=== PATIENT | female | born 1965 | race Caucasian/White ===

== ENCOUNTER 2019-09-05 20:48 | Inpatient (IN) | payer MEDICARE ==
[2019-09-05 21:46] LABS: #Basophils 0.1 thou/uL (0.0-0.2); #Eosinphils 0.1 thou/uL (0.0-0.7); #Lymphocytes 4.3 thou/uL (1.20-3.40); #Monocytes 0.7 thou/uL (0.11-0.59); #Neutrophils 11.1 thou/uL (1.40-6.50); %Basophils 0.7 % (0.0-1.0); %Eosinophils 0.8 % (0.0-10.0); %Lymphocytes 26.2 % (21.0-51.0); %Monocytes 4.3 % (0.0-10.0); Hemoglobin 17.4 g/dL (12.0-16.0); Mean Corpuscular HGB CONC 32.7 g/dL (32.0-36.0); Mean Corpuscular Hemoglobin 30.3 pg (27.0-31.0); Mean Corpuscular Volume 92.6 fL (78.0-98.0); Mean Platelet Volume 7.1 fL (7.4-10.4); Platelet Count 387 thou/uL (130-400); RBC Distribution Width 12.1 % (11.5-14.5); Red Blood Cell (RBC) Count 5.74 mill/uL (4.20-5.40); White Blood Cell (WBC) Count 16.3 thou/uL (4.8-10.8)
--- NOTE | 2019-09-05 21:49 | RAD ---
EXAM: Single view of the chest HISTORY: Cough COMPARISON: None FINDINGS: Single view of the chest shows a normal sized cardiomediastinal silhouette. There is no renetta dence of consolidation, mass, or pleural effusion. The bones are unremarkable. IMPRESSION: No evidence of acute cardiopulmonary disease
[2019-09-05 22:06] LABS: ALT (SGPT) 23 U/L (8-55); AST (SGOT) 13 U/L (5-34); Albumin 4.5 g/dL (3.5-5.0); Alkaline Phosphatase 129 U/L (40-110); Anion Gap 15 mmol/L (10-20); BUN (Urea Nitrogen) 8 mg/dL (9.8-20.1); Bilirubin, Total 0.5 mg/dL (0.2-1.2); Calc. Creatinine Clearance 0 mL/min (70-130); Calcium 9.8 mg/dL (7.8-10.44); Carbon Dioxide 24 mmol/L (22-29); Chloride 101 mmol/L (98-107); Estimated GFR-MDRD 81; Globulin 4.1 g/dL (2.4-3.5); Glucose 88 mg/dL (70-105); Protein, Total 8.6 g/dL (6.0-8.3); Sodium 136 mmol/L (136-145)
[2019-09-05] MEDS ORDERED: methylPREDNISolone Sod Succ/PF 125 MG/2 ML VIAL ONE (22:07)
[2019-09-06] LABS: Bilirubin Negative (Negative); Blood, Urine Negative (Negative); Clarity Clear (Clear); Glucose, Urine (Dipstick) Normal (Negative); Leukocyte Negative Leu/uL (Negative); Nitrite Negative (Negative); Protein, Urine (Dipstick) Negative (Neg-Trace); Urobilinogen Normal mg/dL (Less than 2)
[2019-09-06] MEDS ORDERED: cefTRIAXone\\ROCEPHIN 1 GM VIAL ONE (00:14)
[2019-09-06] MEDS ORDERED: Benzonatate 100 MG CAP PO PRN (00:55)
[2019-09-06] MEDS ORDERED: Bacteriostatic Water 30 ML VIAL FS PRN (01:00)
[2019-09-06 01:42] LABS: Lactic Acid 3.6 mmol/L (0.5-2.2)
[2019-09-06 02:09] VITALS: BMI 29.5
--- NOTE | 2019-09-06 02:19 | HP ---
CHIEF COMPLAINT: Shortness of breath. HISTORY OF PRESENT ILLNESS: The patient is a 54-year-old female, who was recently diagnosed with possible pneumonia at her PCP's office. The patient stated that about a few days ago, she went to her primary care with complaints of congestion, fevers, cough, and at this time, her primary care doctor put her on some Z-Pritesh and gave her a steroid shot and sent her home. The patient stated that initially she has felt a little bit better; however, then she started feeling unwell and so she came into the ER for further evaluation. The patient states that today she felt like she was unable to breathe. In the ED, she was found to be very short of breath, was not really hypoxic; however, she was found to be in significant respiratory distress. PAST MEDICAL HISTORY: She has a history of myasthenia gravis and dystonia. She has also had a history of acoustic neuroma, status post surgery. History of blood clots in her legs, which were attributed to her varicose veins and restless legs syndrome. FAMILY HISTORY: She has a history of clots and asthma. SOCIAL HISTORY: She denies any smoking herself, alcohol use, or drug use; however, her family would smoke extensively that she had significant amount of secondhand smoking. ALLERGIES: SHE HAS MULTIPLE ALLERGIES, ESPECIALLY TO PENICILLIN; HOWEVER, SHE IS ABLE TO TOLERATE CEFTRIAXONE. MEDICATIONS: She does not have her medications with her. I did discuss code status. She is a full code. REVIEW OF SYSTEMS: All negative except for the ones mentioned above in the HPI. PHYSICAL EXAMINATION: VITAL SIGNS: Are as of the following; temperature of 99.1, respirations 24, O2 saturation 97% on room air, heart rate 89, blood pressure 124/64. GENERAL: She is awake, alert, and oriented x3. Does not appear in distress. HEENT: Normocephalic, atraumatic. No lymphadenopathy noted. Pupils are equal and reactive to light. CV: S1 and S2 present. No murmurs, rubs, or gallops. LUNGS: She does have significant rhonchi and mild expiratory wheezing to her upper chest area anteriorly; posteriorly, she appears to be pretty clear. ABDOMEN: Soft and nontender. Bowel sounds are present x2. EXTREMITIES: No edema. Pedal pulses are present x2. NEUROVASCULAR: There was no focal deficits noted. SKIN: No cuts, lesions, or bruises noted. DIAGNOSTIC STUDIES: She did have x-ray, which did not show any acute infectious etiology. LABORATORY DATA: WBC of 16.3, hemoglobin 17.4, hematocrit of 53.2, platelets of 387. Chemistry; sodium of 136, potassium of 4.0, BUN of 8, creatinine of 0.75. Lactic acid was 3.6. ASSESSMENT AND PLAN: The patient is a pleasant 54-year-old female, who presents to the hospital with worsening shortness of breath. 1. Shortness of breath. This could be secondary to possible maybe bronchitis versus worsening pneumonia versus cardiac etiology. I will start the patient on some DuoNebs and also her flu swab is pending. We will also start her on some ceftriaxone. She already received a dose of Z-Pritesh. I will not continue that. I will also give her some steroids and I will continue to monitor her. I will also get a CT chest just to rule out any other etiologies. 2. Lactic acidosis. Again, I will start her on some mild hydration and continue to monitor. 3. Myoasthenia gravis. The patient states that she does not take her medications on a daily basis. She only takes this as needed whenever her symptoms flare up. 4. Deep venous thrombosis prophylaxis. We will put the patient on SCDs and also we will start her on some Lovenox. Job ID: [id number]
[2019-09-06] MEDS: Sodium Chloride 0.9% 1,000 ML IV SCH ×2 (02:29→21:07)
[2019-09-06 06:04] LABS: #Lymphocytes 1.1 thou/uL (1.20-3.40); #Monocytes 0.1 thou/uL (0.11-0.59); #Neutrophils 10.8 thou/uL (1.40-6.50); %Eosinophils 0.1 % (0.0-10.0); %Lymphocytes 9.1 % (21.0-51.0); %Monocytes 0.6 % (0.0-10.0); %Neutrophils 90.2 % (42.0-75.0); Hemoglobin 15.2 g/dL (12.0-16.0); Mean Corpuscular HGB CONC 33.4 g/dL (32.0-36.0); Mean Corpuscular Hemoglobin 30.7 pg (27.0-31.0); Mean Corpuscular Volume 91.9 fL (78.0-98.0); Platelet Count 298 thou/uL (130-400); Red Blood Cell (RBC) Count 4.93 mill/uL (4.20-5.40)
[2019-09-06 06:18] LABS: Lactic Acid 3.4 mmol/L (0.5-2.2)
[2019-09-06 06:21] LABS: Anion Gap 13 mmol/L (10-20); BUN (Urea Nitrogen) 9 mg/dL (9.8-20.1); Calc. Creatinine Clearance 138 mL/min (70-130); Calcium 8.6 mg/dL (7.8-10.44); Carbon Dioxide 20 mmol/L (22-29); Chloride 106 mmol/L (98-107); Estimated GFR-MDRD Greater than 90; Glucose 160 mg/dL (70-105); Potassium 4.1 mmol/L (3.5-5.1); Sodium 135 mmol/L (136-145)
[2019-09-06] MEDS ORDERED: methylPREDNISolone Sod Succ 40 MG VIAL IVP SCH (09:00)
[2019-09-06] MEDS: Famotidine 20 MG TAB PO SCH ×2 (09:20→20:25)
--- NOTE | 2019-09-06 10:06 | CT ---
PRELIMINARY REPORT/[facility]/EMERGENCY AFTER HOURS PROCEDURE: PROCEDURE INFORMATION: Exam: CT Chest Without Contrast Exam date and time: 09/06/2019 1:36 AM Clinical history: 54 years old, female; Dyspnea and shortness of breath; Patient HX: Er 26. F54 repor ts to ED C/O SOB. PT reports recent diagnosis of pneumonia with z-pac. TECHNIQUE: Imaging protocol: Computed tomography of the chest without contrast. COMPARISON: No relevant prior studies available. FINDINGS: Lungs: Unremarkable. No consolidation. No masses. Pleural space: Unremarkable. No pneumothorax. No pleural effusion. Heart: Unremarkable. No cardiomegaly. No pericardial effusion. Mediastinum: Esophagus is unremarkable. Aorta: Unremarkable. No aortic aneurysm. Lymph nodes: Unremarkable. No enlarged lymph nodes. Gallbladder and bile ducts: Include visualized gallstone. Bones/joints: Unremarkable. No acute fracture. Soft tissues: Unremarkable. IMPRESSION: No acute findings. Thank you for allowing us to participate in the care of your patient. Dictated and Authenticated by: Ronni Wasserman MD 09/06/2019 1:53 AM Central Time ([place] & [place]) FINAL REPORT CT CHEST WITHOUT CONTRAST: The lung gomez are clear. Images of the upper abdomen revealed a single peripherally calcified gallstone. I am in agreement with the preliminary report.
[2019-09-06] MEDS ORDERED: HYDROcodone/Acetaminophen 5/325 mg Tablet PO PRN (11:52)
--- NOTE | 2019-09-06 13:35 | PDOC.HOSPP ---
- Subjective Encounter Date: 09/06/19 Encounter Time: 12:00 Subjective: sob better, still has coughing spells which are mostly dry has left knee pain, she is worried about dvt? she ambulates well with out any assistive devices at home - Objective Vital Signs & Weight: Vital Signs (12 hours) Temp Pulse Resp BP BP BP Pulse Ox 09/06/19 11:16 98 F 91 19 118/63 95 09/06/19 09:33 99 09/06/19 06:35 92 24 H 99 09/06/19 04:00 98.2 F 96 20 151/88 H 93 L 09/06/19 02:54 96 09/06/19 02:08 97.5 F L 96 22 H 153/78 H 96 Weight Weight 183 lb 3.2 oz Result Diagrams: 09/06/19 05:38 09/06/19 05:38 Hospitalist ROS - Medication Medications: Active Medications Generic Name Dose Route Start Last Admin Trade Name Freq PRN Reason Stop Dose Admin Albuterol/Ipratropium 3 ml 09/06/19 01:00 09/06/19 06:35 Duoneb NEB 3 ml [id number] CAROL Administration Famotidine 20 mg 09/06/19 09:00 09/06/19 09:20 Pepcid PO 20 mg BID CAROL Administration Sodium Chloride 1,000 mls @ 50 mls/hr 09/06/19 01:00 09/06/19 02:29 Normal Saline 0.9% IV 1,000 mls .Q20H CAROL Administration Methylprednisolone Sodium Succinate 40 mg 09/06/19 09:00 09/06/19 09:20 Solu-Medrol IVP 40 mg DAILY CAROL Administration - Exam General Appearance: NAD, awake alert Eye: PERRL, anicteric sclera ENT: no oropharyngeal lesions, moist mucosa Neck: no JVD Heart: RRR, no murmur Respiratory: no wheezes, no rales, rhonchi Gastrointestinal: soft, non-tender, non-distended, normal bowel sounds Extremities: no cyanosis, no edema Neurological: cranial nerve grossly intact, no focal deficits Psychiatric: normal affect, A&O x 3 Hosp A/P (1) Viral illness Status: Acute (2) Asthma exacerbation Code(s): J45.901 - UNSPECIFIED ASTHMA WITH (ACUTE) EXACERBATION Status: Acute Qualifiers: Asthma severity: moderate Asthma persistence: persistent Qualified Code(s ): J45.41 - Moderate persistent asthma with (acute) exacerbation (3) Myasthenia gravis Code(s): G70.00 - MYASTHENIA GRAVIS WITHOUT (ACUTE) EXACERBATION Status: Chronic (4) Seizure disorder Code(s): G40.909 - EPILEPSY, UNSP, NOT INTRACTABLE, WITHOUT STATUS EPILEPTICUS Status: Chronic (5) Restless leg syndrome Status: Chronic (6) Hypothyroidism Code(s): E03.9 - HYPOTHYROIDISM, UNSPECIFIED Status: Chronic Qualifiers: Hypothyroidism type: unspecified Qualified Code(s): E03.9 - Hypothyroidism , unspecified - Plan f/u with for myasthenia (gets gen weakness if has a flare up), continue mestinon on ceftriaxone, steroids, nebs (is on advair and alb nebs at home) continue synthroid, oxcarbamazepine, mirapex and escitalopram pulm consultation [facility]
[2019-09-06] MEDS: Pyridostigmine Bromide IR 60 MG TAB PO SCH ×2 (14:29→20:26)
[2019-09-06] MEDS: ALPRAZolam 0.5 MG TAB PO SCH ×2 (14:47→20:25)
[2019-09-06] MEDS: methylPREDNISolone Sod Succ 40 MG VIAL IVP SCH ×2 (18:05→23:59)
[2019-09-06] MEDS: Mometasone/Formoterol 120 PUFF INHALER INH SCH (18:25)
[2019-09-06] MEDS: Benzonatate 100 MG CAP PO SCH (20:25)
[2019-09-06] MEDS: guaiFENesin ER 600 MG TAB PO SCH (20:25)
[2019-09-06] MEDS: OXcarbazepine 300 MG TAB PO SCH (20:25)
[2019-09-06] MEDS: tiZANidine HCl 4 MG TAB PO PRN (20:30)
[2019-09-06] MEDS: Pramipexole Di-HCl 0.25 MG TAB PO SCH (21:06)
[2019-09-07] MEDS ORDERED: cefTRIAXone\\ROCEPHIN 1 GM in Sodium Chloride 0.9% 100 ML IVPB SCH (01:00)
[2019-09-07] MEDS: methylPREDNISolone Sod Succ 40 MG VIAL IVP SCH ×2 (05:30→20:27)
[2019-09-07 05:55] LABS: Anion Gap 12 mmol/L (10-20); BUN (Urea Nitrogen) 11 mg/dL (9.8-20.1); Calc. Creatinine Clearance 141 mL/min (70-130); Calcium 8.5 mg/dL (7.8-10.44); Carbon Dioxide 20 mmol/L (22-29); Chloride 108 mmol/L (98-107); Estimated GFR-MDRD Greater than 90; Glucose 143 mg/dL (70-105); Potassium 4.4 mmol/L (3.5-5.1); Sodium 136 mmol/L (136-145)
[2019-09-07 05:59] LABS: Band 5 % (5-11); Hemoglobin 14.3 g/dL (12.0-16.0); Lymphocytes 3 % (21-51); MDiff Complete? YES; Mean Corpuscular HGB CONC 33.6 g/dL (32.0-36.0); Mean Corpuscular Hemoglobin 31.1 pg (27.0-31.0); Mean Corpuscular Volume 92.5 fL (78.0-98.0); Mean Platelet Volume 7.1 fL (7.4-10.4); Monocytes 2 % (0-10); Neutrophil 90 % (42-75); Platelet Count 301 thou/uL (130-400); Platelet Morphology Comment Appears Adequate; RBC Distribution Width 12.2 % (11.5-14.5); RBC Morphology Normal; Red Blood Cell (RBC) Count 4.59 mill/uL (4.20-5.40); White Blood Cell (WBC) Count 19.1 thou/uL (4.8-10.8)
[2019-09-07] MEDS: Mometasone/Formoterol 120 PUFF INHALER INH SCH ×2 (06:41→18:15)
[2019-09-07] MEDS ORDERED: Pramipexole Di-HCl 0.25 MG TAB PO SCH (09:00)
[2019-09-07] MEDS: Benzonatate 100 MG CAP PO SCH ×3 (09:16→20:27)
[2019-09-07] MEDS: Levothyroxine Sodium 112 MCG TAB PO SCH (09:16)
[2019-09-07] MEDS: Pyridostigmine Bromide IR 60 MG TAB PO SCH ×3 (09:16→20:26)
[2019-09-07] MEDS: Escitalopram Oxalate 20 mg Tablet PO SCH (09:16)
[2019-09-07] MEDS: guaiFENesin ER 600 MG TAB PO SCH ×2 (09:16→20:26)
[2019-09-07] MEDS: OXcarbazepine 300 MG TAB PO SCH ×2 (09:17→20:27)
[2019-09-07] MEDS: Acetaminophen 325 MG TAB PO PRN (09:20)
[2019-09-07] MEDS: Famotidine 20 MG TAB PO SCH ×2 (09:24→20:26)
[2019-09-07] MEDS: ALPRAZolam 0.5 MG TAB PO SCH ×3 (09:25→20:40)
--- NOTE | 2019-09-07 09:46 | CON ---
DATE OF CONSULTATION: HISTORY OF PRESENT ILLNESS: A 54-year-old obese female, 79 kg, presented to the ER with shortness of breath, coughing, and wheezing of several days' duration. Apparently, a diagnosis of pneumonia was made recently. She tells me given a course of Z-Pritesh by her doctor. The x-ray and chest CT were negative. Nonsmoker. No prior history of TB, but has a history of asthmatic condition, twice a year cold. Her cough is relatively clear. PAST MEDICAL HISTORY: Pertinent for brain tumor. She is deaf. History of myasthenia gravis, history of epilepsy. PAST SURGICAL HISTORY: Craniotomy, hysterectomy. ALLERGIES: CODEINE, IODINE, LEVAQUIN, PENICILLIN, SULFA. SOCIAL HISTORY: She is disabled. REVIEW OF SYSTEMS: Otherwise, 10-point negative. PHYSICAL EXAMINATION: VITAL SIGNS: Sats are 98% on room air, respiratory rate 18, temperature 98, blood pressure 133/75. CHEST: Diffuse wheezing. CARDIAC: Normal S1 and S2. No gallops. ABDOMEN: No masses. IMPRESSION: 1. Asthmatic bronchitis, probably viral syndrome. I see no pneumonia. 2. Myasthenia gravis. 3. Seizure disorders. 4. Craniotomy. 5. Hypothyroidism. 6. Depression. PLAN: Initiate steroids, neb treatments, supportive care. Switch over to oral antibiotics tomorrow. Consultation note, 70 minutes, 50% direct patient care. Job ID: [id number]
--- NOTE | 2019-09-07 11:28 | PRG ---
DATE OF SERVICE: 09/07/2019 SUBJECTIVE: This morning, she is much better. Less shortness of breath and less cough. OBJECTIVE: VITAL SIGNS: Temperature 98, pulse 102, saturations 98% on room air, blood pressure 108/62. CHEST: No wheezing. CARDIAC: Normal S1, S2. No gallops. ABDOMEN: No masses. LABORATORY DATA: White count [id number]. ASSESSMENT: Asthmatic bronchitis exacerbation. Switch to p.o. medicine. IV steroids, p.o. prednisone tomorrow. Supportive care and PT. Eventually home in the next 24 to 48 hours. Job ID: [id number]
--- NOTE | 2019-09-07 11:35 | PDOC.HOSPP ---
- Subjective Encounter Date: 09/07/19 Encounter Time: 11:32 Subjective: Patient seen and examined for Sepsis/Pneumonia. Dry cough. Wheezing improving. Feeling better. No new complaints. No overnight events - Objective Vital Signs & Weight: Vital Signs (12 hours) Temp Pulse Resp BP Pulse Ox 09/07/19 09:25 98 09/07/19 08:17 98.0 F 102 H 18 108/62 98 09/07/19 06:42 100 14 09/07/19 00:16 84 18 94 L Weight Weight 183 lb 3.2 oz Result Diagrams: 09/07/19 04:44 09/07/19 04:44 Radiology Reviewed by me: Yes (CXR - reviewed) Hospitalist ROS - Review of Systems Respiratory: reports: SOB with excertion, wheezing. denies: cough, dry, shortness of breath, hemoptysis, pleuritic pain, sputum, other Cardiovascular: denies: chest pain, palpitations, orthopnea, paroxysmal noc. dyspnea, edema, light headedness, other Gastrointestinal: denies: nausea, vomiting, abdominal pain, diarrhea, constipation, melena, hematochezia, other - Medication Medications: Active Medications Generic Name Dose Route Start Last Admin Trade Name Freq PRN Reason Stop Dose Admin Acetaminophen 650 mg 09/06/19 00:54 09/07/19 09:20 Tylenol PO 650 mg Q4H PRN Administration Headache/Fever/Mild Pain (1-3) Albuterol/Ipratropium 3 ml 09/06/19 01:00 09/07/19 06:42 Duoneb NEB 3 ml [id number] CAROL Administration Alprazolam 0.5 mg 09/06/19 15:00 09/07/19 09:25 Xanax PO Not Given TID CAROL Benzonatate 100 mg 09/06/19 00:55 09/06/19 14:29 Tessalon PO 100 mg TIDPRN PRN Administration Cough Benzonatate 100 mg 09/06/19 21:00 09/07/19 09:16 Tessalon PO 100 mg TID CAORL Administration Escitalopram Oxalate 20 mg 09/07/19 09:00 09/07/19 09:16 Lexapro PO 20 mg DAILY CAROL Administration Famotidine 20 mg 09/06/19 09:00 09/07/19 09:24 Pepcid PO 20 mg BID CAROL Administration Guaifenesin 1,200 mg 09/06/19 21:00 09/07/19 09:16 Mucinex PO 1,200 mg Q12HR CAROL Administration Sodium Chloride 1,000 mls @ 50 mls/hr 09/06/19 01:00 09/06/19 21:07 Normal Saline 0.9% IV 1,000 mls .Q20H CAROL Administration Levothyroxine Sodium 112 mcg 09/07/19 09:00 09/07/19 09:16 Synthroid PO 112 mcg DAILY CAROL Administration Mometasone Furoate/Formoterol Fumar 2 puff 09/06/19 18:30 09/07/19 06:41 Dulera 200 Mcg/5 Mcg Inhaler INH 2 puff BID-RT CAROL Administration Oxcarbazepine 300 mg 09/06/19 21:00 09/07/19 09:17 Trileptal PO 300 mg BID CAROL Administration Pramipexole Dihydrochloride 0.5 mg 09/06/19 21:00 09/06/19 21:06 Mirapex PO 0.5 mg HS CAROL Administration Pyridostigmine [place] 60 mg 09/06/19 15:00 09/07/19 09:16 Mestinon PO 60 mg TID CAROL Administration Sodium Chloride 10 ml 09/06/19 20:30 09/07/19 09:17 Flush - Normal Saline IVF 10 ml PRN PRN Administration Saline Flush Tizanidine HCl 4 mg 09/06/19 11:52 09/06/19 20:30 Zanaflex PO 4 mg DAILYPRN PRN Administration Muscle Spasm - Exam General Appearance: NAD Neck: supple, no JVD Heart: RRR, no gallops Respiratory: no wheezes, normal chest expansion, rhonchi Gastrointestinal: soft, non-tender, non-distended, normal bowel sounds Extremities: no edema Hosp A/P - Plan DVT proph w/lovenox, DVT proph w/SCDs Severe Sepsis due to Pneumonia ?gram negative with Asthmatic bronchitis Lactic acidosis Seizure disorder Cholelithiasis RLD Myasthenia gravis Hypothyroidism Hyponatremia PLAN: Cont IV Steroids Cont PO Doxycycline AM labs AMbulate Cont other meds
[2019-09-07] MEDS: Calcium Carbonate + Vit D 1 TAB PO SCH (17:17)
[2019-09-07] MEDS: Pramipexole Di-HCl 0.25 MG TAB PO SCH (20:26)
[2019-09-07] MEDS: Doxycycline 100 MG CAP PO SCH (20:27)
[2019-09-07] MEDS: tiZANidine HCl 4 MG TAB PO PRN (20:32)
[2019-09-07] MEDS ORDERED: Enoxaparin Sodium 40 MG/0.4 ML SYRINGE SC SCH (21:00)
[2019-09-08] MEDS: Acetaminophen 325 MG TAB PO PRN ×2 (03:36→07:29)
[2019-09-08 05:32] LABS: #Lymphocytes 1.6 thou/uL (1.20-3.40); #Monocytes 0.4 thou/uL (0.11-0.59); #Neutrophils 11.2 thou/uL (1.40-6.50); %Basophils 0.2 % (0.0-1.0); %Eosinophils 0.4 % (0.0-10.0); %Lymphocytes 11.9 % (21.0-51.0); %Monocytes 2.9 % (0.0-10.0); %Neutrophils 84.6 % (42.0-75.0); Hemoglobin 13.5 g/dL (12.0-16.0); Mean Corpuscular HGB CONC 33.7 g/dL (32.0-36.0); Mean Corpuscular Hemoglobin 31.1 pg (27.0-31.0); Mean Corpuscular Volume 92.5 fL (78.0-98.0); Mean Platelet Volume 7.1 fL (7.4-10.4); Platelet Count 280 thou/uL (130-400); RBC Distribution Width 12.2 % (11.5-14.5); Red Blood Cell (RBC) Count 4.33 mill/uL (4.20-5.40); White Blood Cell (WBC) Count 13.2 thou/uL (4.8-10.8)
[2019-09-08 05:44] LABS: Lactic Acid 3.9 mmol/L (0.5-2.2)
[2019-09-08 05:56] LABS: ALT (SGPT) 48 U/L (8-55); AST (SGOT) 21 U/L (5-34); Albumin 3.5 g/dL (3.5-5.0); Alkaline Phosphatase 94 U/L (40-110); Anion Gap 13 mmol/L (10-20); BUN (Urea Nitrogen) 14 mg/dL (9.8-20.1); Bilirubin, Total 0.2 mg/dL (0.2-1.2); Calc. Creatinine Clearance 117 mL/min (70-130); Calcium 8.3 mg/dL (7.8-10.44); Carbon Dioxide 21 mmol/L (22-29); Chloride 106 mmol/L (98-107); Estimated GFR-MDRD 84; Globulin 2.8 g/dL (2.4-3.5); Glucose 180 mg/dL (70-105); Magnesium 1.9 mg/dL (1.6-2.6); Potassium 4.3 mmol/L (3.5-5.1); Protein, Total 6.3 g/dL (6.0-8.3); Sodium 136 mmol/L (136-145)
[2019-09-08] MEDS: Pyridostigmine Bromide IR 60 MG TAB PO SCH (07:29)
[2019-09-08] MEDS: Benzonatate 100 MG CAP PO SCH (07:29)
[2019-09-08] MEDS: Doxycycline 100 MG CAP PO SCH (07:29)
[2019-09-08] MEDS: Escitalopram Oxalate 20 mg Tablet PO SCH (07:30)
[2019-09-08] MEDS: Levothyroxine Sodium 112 MCG TAB PO SCH (07:30)
[2019-09-08] MEDS: ALPRAZolam 0.5 MG TAB PO SCH (07:30)
[2019-09-08] MEDS: Calcium Carbonate + Vit D 1 TAB PO SCH (07:30)
[2019-09-08] MEDS: Famotidine 20 MG TAB PO SCH (07:30)
[2019-09-08] MEDS: OXcarbazepine 300 MG TAB PO SCH (07:30)
[2019-09-08] MEDS: guaiFENesin ER 600 MG TAB PO SCH (07:30)
[2019-09-08] MEDS: methylPREDNISolone Sod Succ 40 MG VIAL IVP SCH (07:31)
[2019-09-08] MEDS: Mometasone/Formoterol 120 PUFF INHALER INH SCH (07:35)
[2019-09-08] MEDS ORDERED: Multivit, Therapeutic 1 TAB PO SCH (09:00)
--- NOTE | 2019-09-08 09:27 | PRG ---
DATE OF SERVICE: 09/08/2019 SUBJECTIVE: This morning, she feels much better, less cough, less shortness of breath, minimal wheezing. OBJECTIVE: VITAL SIGNS: Saturations are 98% on room air, temperature 98, pulse 78, and blood pressure 138/77. CHEST: No wheezing. No crackles. CARDIAC: Normal S1 and S2. No gallops. ABDOMEN: No masses. LABORATORY DATA: Unremarkable. Glucose is slightly elevated, probably from steroids. ASSESSMENT: Asthmatic bronchitis, much improved, no evidence of pneumonia. PLAN: She can be discharged home. Follow up with the primary care physician. Taper prednisone over 2 weeks. Job ID: [id number]
--- NOTE | 2019-09-08 10:22 | DIS ---
DATE OF ADMISSION: 09/06/2019 DATE OF DISCHARGE: 09/08/2019 DISCHARGE DISPOSITION: Home. FOLLOWUP: 1. Follow up with primary care physician, Dr. Jagdeep Gramajo in 1 week. 2. Follow up with Dr. Pratt as needed. DISCHARGE MEDICATIONS: 1. Doxycycline 100 mg twice daily for the next 5 days. 2. Advair Diskus 250/50 one inhalation b.i.d. 3. Multivitamin one tablet daily. 4. Prednisone taper. 5. All other home medications were left unchanged. The patient was seen and examined on the day of discharge. Denies any new complaints. No chest pain, shortness of breath, or palpitations reported. BRIEF HOSPITAL COURSE: The patient is a 54-year-old female with asthma, presented to the hospital with shortness of breath. A workup was consistent with sepsis secondary to pneumonia along with asthmatic bronchitis. She showed good improvement with antibiotics along with steroids. WBC maximum was 19.1, that improved to 13.2 at discharge. Symptoms have significantly improved. She has been cleared by Pulmonary, Dr. Pratt for discharge. Blood culture remained negative. Influenza testing was negative. The patient was found to have lactic acid of 3.6 on admission. Repeat lactic acid has remained in this range. Today on the day of discharge, the lactic acid is 3.9. Lactic acid is probably secondary to enhanced metabolic rate from asthma exacerbation. A repeat lactic acid along with basic metabolic profile later this week is recommended. Primary care physician advised to follow. She is currently on room air and appears stable for discharge. FINAL DIAGNOSES: 1. Severe sepsis secondary to pneumonia, questionable gram-negative with asthmatic bronchitis. 2. Lactic acidosis secondary to sepsis with asthma exacerbation. 3. Seizure disorder. 4. Myasthenia gravis. 5. Cholelithiasis, found on the chest CT. The patient is asymptomatic. 6. Hypothyroidism. 7. Hyponatremia with sodium of 135 on admission. Her sodium is 136 at discharge. 8. Restless leg syndrome. 9. History of acoustic neuroma status post surgery. 10. Dehydration on admission. PLAN: Plan of care was discussed with the patient in detail. She stated understanding. Job ID: [id number]
[2019-09-08 11:49] VITALS: BP 129/67; TEMP 97.5
[2019-09-09] MEDS ORDERED: predniSONE 20 MG TAB PO SCH (08:00)
--- NOTE | 2019-09-10 07:53 | PQF ---
[employer] Dynamic Balancer Set Up Worker Crystal Reports Winform ViewerMAUREFAITH Godoy DEBBY EMANUEL MD [id number] [facility] [id number] CLINICAL DOCUMENTATION CLARIFICATION FORM: POST DISCHARGE Addendum to original discharge summary date: ____ Late entry note date: __ DATE: 09/10/2019 ATTN:DEBBY EMANUEL MD Please exercise your independent, professional judgment in responding to the clarification form. Clinical indicators are provided on the bottom of this form for your review Please check appropriate box(s) to clarify if the following diagnosis has been ruled in or ruled out: Pneumonia [ ] Ruled in diagnosis [ ] Continue to treat [ ] Resolved [ x ] Ruled out diagnosis [ ] Cannot rule out diagnosis [ ] Other diagnosis [ ] Unable to determine For continuity of documentation, please document condition throughout progress notes and discharge summary. Thank You. CLINICAL INDICATORS - SIGNS / SYMPTOMS / LABS --Severe sepsis secondary to pneumonia, questionable gram-negative with asthmatic bronchitis-DS, 09/08, Debby Emanuel MD - WBC: 19.1 that improved 13.2-DS, 09/08, Debby Emanuel MD - No evidence of consolidation-Chest -X ray, 09/05 - Asthmatic bronchitis, much improved, no evidence of pneumonia--Progress note, 09/08, Terence Garcia MD - Temp:99.1, RR:24- H&P, 09/06, Shawn Edwards MD - SOB, This is could be sec to possible maybe bronchitis versus worsening pneumonia versus cardiac etiology-H&P, 09/06, Shawn Edwards MD RISK FACTORS -- Asthmatic bronchitis-Progress note, 09/08, Terence Garcia MD TREATMENTS --Rocephin.IV-MAR, 09/06 (This form is maintained as a part of the permanent medical record) [employer] Dynamic Balancer Set Up Worker Crystal Reports Winform [id number] [employer]. All Rights Reserved Lisa Weber [not provided] [not provided] MTDD
--- NOTE | 2019-09-10 08:05 | PQF ---
S[employer] Fabrication Machine Operator Crystal Reports Winform ViewerMAURERFAITH DEBBY EMANUEL MD [id number] [facility] [id number] CLINICAL DOCUMENTATION CLARIFICATION FORM: POST DISCHARGE Addendum to original discharge summary date: ____ Late entry note date: __ DATE: 09/10/2019 ATTN: DEBBY EMANUEL MD Please exercise your independent, professional judgment in responding to the clarification form. Clinical indicators are provided on the bottom of this form for your review Diagnosis: Severe sepsis Present on Admission (POA): [ x ] Yes [ ] No [ ] Unable to determine Coding guidelines require hospitals to identify whether a diagnosis was present on admission (POA) or not. To accurately assign the appropriate POA indicator, this information must be clearly documented within the medical record. CLINICAL INDICATORS - SIGNS / SYMPTOMS / LABS - Severe sepsis secondary to pneumonia, questionable gram-negative with asthmatic bronchitis-DS, 09/08, Debby Emanuel MD - Temp: 99.1, RR: 24, HR:89, B/P: 124/64-H&P, 09/06, Shawn Rubio MD - Lactic acidosis sec to severe sepsis with asthma exacerbation- H&P, 09/06, Shawn Rubio MD - WBC: 16.3- H&P, 09/06, Shawn Rubio MD TREATMENT: - Rocephin.IV-JAN, 09/06 (This form is maintained as a part of the permanent medical record) 2014 [employer]. All Rights Reserved Lisa Weber [not provided] [not provided] MTDD
== END 2019-09-08 12:00 | disposition home or self-care (01) | DRG 872 ==
LOC: ERS 20:48 → T4-B 09-06 01:20
PROVIDERS: ADMIT Internal Medicine; ATTEND Internal Medicine
DX: A41.9 Sepsis, unspecified organism (principal); E87.2 Acidosis; E87.1 Hypo-osmolality and hyponatremia; J45.41 Moderate persistent asthma with (acute) exacerbation; F32.9 Major depressive disorder, single episode, unspecified; G40.909 Epilepsy, unspecified, not intractable, without status epilepticus; G70.00 Myasthenia gravis without (acute) exacerbation; K80.20 Calculus of gallbladder without cholecystitis without obstruction; E03.9 Hypothyroidism, unspecified; G25.81 Restless legs syndrome; F41.9 Anxiety disorder, unspecified; E86.0 Dehydration; E66.9 Obesity, unspecified; H91.90 Unspecified hearing loss, unspecified ear; G24.9 Dystonia, unspecified; R65.20 Severe sepsis without septic shock; Z90.710 Acquired absence of both cervix and uterus; Z88.1 Allergy status to other antibiotic agents; Z88.5 Allergy status to narcotic agent; Z88.0 Allergy status to penicillin; Z88.8 Allergy status to other drugs, medicaments and biological substances; Z68.29 Body mass index [BMI] 29.0-29.9, adult; Z86.69 Personal history of other diseases of the nervous system and sense organs
CPT/HCPCS: 36415; 71045; 71250; 80048; 80053; 81003; 83605; 83735; 83880; 85025; 87040; 87804; 93005; 94640; 94760; 96361; 96365; 96375; J0696; J1650; J2920; J2930; J3490; J7620

== ENCOUNTER 2019-11-23 11:49 | Inpatient (IN) | payer MEDICARE ==
[2019-11-23] MEDS ORDERED: Ondansetron PF 4 MG/2 ML Vial ONE (11:58)
[2019-11-23] MEDS ORDERED: Fentanyl 100 MCG/2 ML VIAL ONE (12:00)
[2019-11-23] MEDS ORDERED: diphenhydrAMINE 50 MG/ML VIAL ONE (12:08)
[2019-11-23] MEDS ORDERED: Famotidine/PF 20 mg/2ml Vial ONE (12:08)
[2019-11-23] MEDS ORDERED: methylPREDNISolone Sod Succ/PF 125 MG/2 ML VIAL ONE (12:08)
[2019-11-23] MEDS ORDERED: Adacel (T-DAP) 0.5 ML SYRINGE ONE (12:08)
[2019-11-23 13:12] LABS: #Basophils 0.1 thou/uL (0.0-0.2); #Eosinphils 0.3 thou/uL (0.0-0.7); #Lymphocytes 3.7 thou/uL (1.20-3.40); #Monocytes 0.5 thou/uL (0.11-0.59); #Neutrophils 6.4 thou/uL (1.40-6.50); %Basophils 0.5 % (0.0-1.0); %Eosinophils 3.1 % (0.0-10.0); %Lymphocytes 33.5 % (21.0-51.0); %Monocytes 4.8 % (0.0-10.0); %Neutrophils 58.1 % (42.0-75.0); Mean Corpuscular HGB CONC 33.4 g/dL (32.0-36.0); Mean Corpuscular Hemoglobin 31.1 pg (27.0-31.0); Mean Corpuscular Volume 92.9 fL (78.0-98.0); Mean Platelet Volume 8.2 fL (7.4-10.4); Platelet Count 276 thou/uL (130-400); RBC Distribution Width 12.1 % (11.5-14.5); Red Blood Cell (RBC) Count 4.49 mill/uL (4.20-5.40)
[2019-11-23] MEDS ORDERED: Morphine 4 MG/ML VIAL ONE (13:14)
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
[2019-11-23 13:18] LABS: PTT 27.9 SEC (22.9-36.1); Prothrombin Time 13.1 SEC (12.0-14.7)
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
[2019-11-23 13:34] LABS: ALT (SGPT) 109 U/L (8-55); AST (SGOT) 136 U/L (5-34); Albumin 3.9 g/dL (3.5-5.0); Alkaline Phosphatase 93 U/L (40-110); Anion Gap 12 mmol/L (10-20); BUN (Urea Nitrogen) 12 mg/dL (9.8-20.1); Bilirubin, Total 0.3 mg/dL (0.2-1.2); Calc. Creatinine Clearance 0 mL/min (70-130); Calcium 8.4 mg/dL (7.8-10.44); Carbon Dioxide 24 mmol/L (22-29); Chloride 108 mmol/L (98-107); Estimated GFR-MDRD 87; Globulin 2.6 g/dL (2.4-3.5); Glucose 118 mg/dL (70-105); Lipase 37 U/L (8-78); Potassium 3.5 mmol/L (3.5-5.1); Protein, Total 6.5 g/dL (6.0-8.3); Sodium 140 mmol/L (136-145)
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
[2019-11-23] MEDS ORDERED: hydrALAZINE 20 MG/ML VIAL SLOW IVP PRN (13:43)
[2019-11-23] MEDS ORDERED: Dextrose 5% in Water 1,000 ML IV PRN (13:43)
[2019-11-23] MEDS ORDERED: Morphine 4 MG/ML VIAL SLOW IVP PRN (13:43)
[2019-11-23] MEDS ORDERED: Dextrose 50% Abboject 50 ML SYRINGE SLOW IVP PRN (13:43)
[2019-11-23] MEDS ORDERED: Ondansetron PF 4 MG/2 ML Vial IVP PRN (13:43)
[2019-11-23] MEDS ORDERED: Lidocaine Viscous Sol 2% 15 ml UD Cup ONE (13:47)
[2019-11-23] MEDS ORDERED: Ondansetron ODT 8 MG TAB ONE (13:47)
[2019-11-23] MEDS ORDERED: Mag-Al 1200 mg/1200 mg/30 ML UDCUP ONE (13:47)
[2019-11-23] MEDS ORDERED: Cyclobenzaprine 10 MG TAB PO PRN (13:48)
[2019-11-23] MEDS ORDERED: traMADol HCl 50 MG TAB PO PRN ×2 (13:48)
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
[2019-11-23 14:19] LABS: Alcohol Less than 10 mg/dL (Less than 10); CK (CPK) 207 U/L (29-168)
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
[2019-11-23] MEDS ORDERED: Iopamidol-370 76% 500 ML 1 ML ONE (15:54)
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
[2019-11-23] MEDS: Ibuprofen 800 MG TAB PO SCH ×2 (16:27→22:12)
[2019-11-23] MEDS: Gabapentin 300 MG CAP PO SCH ×2 (16:27→20:07)
[2019-11-23 16:51] VITALS: BMI 27.4
[2019-11-23 17:36] LABS: Lactic Acid 1.2 mmol/L (0.5-2.2)
[2019-11-23] MEDS ORDERED: traMADol HCl 50 MG TAB PO SCH (18:00)
[2019-11-23] MEDS ORDERED: Acetaminophen 500 MG TAB PO SCH (18:00)
[2019-11-23 19:02] LABS: Amphetamine Detected (NotDetected); Barbiturates Screen Not Detected (NotDetected); Benzodiazepine Screen Not Detected (NotDetected); Cocaine Metabolite Screen Not Detected (NotDetected); Medtox Control Line Valid? VALID (VALID); Medtox Reader # READER 4; Methadone Not Detected (NotDetected); Methamphetamine Not Detected (NotDetected); Opiate Screen Detected (NotDetected); Oxycodone Screen Not Detected (NotDetected); Phencyclidine (PCP) Not Detected (NotDetected); THC/Cannabinoid Screen Not Detected (NotDetected); Tricyclic Screen Not Detected (NotDetected)
[2019-11-23] MEDS: Senokot S 8.6-50 MG TAB PO SCH (20:06)
[2019-11-23] MEDS ORDERED: HYDROcodone/Acetaminophen 5/325 mg Tablet PO PRN (20:15)
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
[2019-11-24] MEDS: Acetaminophen 325 MG TAB PO SCH ×4 (00:07→17:28)
[2019-11-24] MEDS: HYDROcodone/Acetaminophen 5/325 mg Tablet PO PRN ×2 (00:15→08:07)
[2019-11-24 05:21] LABS: #Basophils 0.1 thou/uL (0.0-0.2); #Lymphocytes 0.9 thou/uL (1.20-3.40); #Monocytes 0.6 thou/uL (0.11-0.59); #Neutrophils 12.6 thou/uL (1.40-6.50); %Basophils 0.4 % (0.0-1.0); %Lymphocytes 6.4 % (21.0-51.0); %Monocytes 4.1 % (0.0-10.0); %Neutrophils 89.1 % (42.0-75.0); Hemoglobin 13.2 g/dL (12.0-16.0); Mean Corpuscular HGB CONC 33.8 g/dL (32.0-36.0); Mean Corpuscular Hemoglobin 31.9 pg (27.0-31.0); Mean Corpuscular Volume 94.5 fL (78.0-98.0); Mean Platelet Volume 8.2 fL (7.4-10.4); Platelet Count 245 thou/uL (130-400); RBC Distribution Width 12.1 % (11.5-14.5); Red Blood Cell (RBC) Count 4.13 mill/uL (4.20-5.40); White Blood Cell (WBC) Count 14.1 thou/uL (4.8-10.8)
[2019-11-24 05:46] LABS: Anion Gap 13 mmol/L (10-20); BUN (Urea Nitrogen) 9 mg/dL (9.8-20.1); Calc. Creatinine Clearance 126 mL/min (70-130); Carbon Dioxide 22 mmol/L (22-29); Chloride 106 mmol/L (98-107); Estimated GFR-MDRD Greater than 90; Glucose 129 mg/dL (70-105); Magnesium 2.1 mg/dL (1.6-2.6); Phosphorus 2.6 mg/dL (2.3-4.7); Potassium 4.1 mmol/L (3.5-5.1); Sodium 137 mmol/L (136-145)
[2019-11-24] MEDS: Ibuprofen 800 MG TAB PO SCH ×3 (06:45→21:02)
--- NOTE | 2019-11-24 07:54 | RAD ---
XR Chest 1 View Portable History: Pneumothorax follow-up Comparison: CT examination prior day Findings: Extensive right-sided significance emphysema is improving. No significant pneumothorax is a ppreciated. Atelectasis in both lung bases. Multiple mildly displaced right-sided rib fractures. Impression: 1. No significant pneumothorax appreciated. 2. Interval partial resorption subcutaneous emphysema.
[2019-11-24] MEDS: Gabapentin 300 MG CAP PO SCH ×3 (08:08→20:59)
[2019-11-24] MEDS: Senokot S 8.6-50 MG TAB PO SCH ×2 (08:08→20:59)
[2019-11-24] MEDS: Polyethylene Glycol 3350 17 GM Packet PO SCH (08:08)
[2019-11-24] MEDS: Enoxaparin Sodium 40 MG/0.4 ML SYRINGE SC SCH (08:56)
[2019-11-24] MEDS: traMADol HCl 50 MG TAB PO SCH ×3 (08:56→20:58)
[2019-11-24] MEDS: Cyclobenzaprine 10 MG TAB PO SCH (20:58)
[2019-11-25] MEDS: Acetaminophen 325 MG TAB PO SCH ×3 (00:18→12:36)
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
[2019-11-25] MEDS: traMADol HCl 50 MG TAB PO SCH ×3 (02:56→14:39)
[2019-11-25] MEDS: Ibuprofen 800 MG TAB PO SCH ×2 (05:36→14:39)
[2019-11-25] MEDS ORDERED: tiZANidine HCl 4 MG TAB PO PRN (07:36)
[2019-11-25] MEDS ORDERED: Pramipexole Di-HCl 0.25 MG TAB PO SCH (09:00)
[2019-11-25] MEDS ORDERED: OXcarbazepine 600 MG TAB PO SCH (09:00)
[2019-11-25] MEDS ORDERED: Escitalopram Oxalate 20 mg Tablet PO SCH (09:00)
[2019-11-25] MEDS: Enoxaparin Sodium 40 MG/0.4 ML SYRINGE SC SCH (09:24)
[2019-11-25] MEDS: Polyethylene Glycol 3350 17 GM Packet PO SCH (09:24)
[2019-11-25] MEDS: Senokot S 8.6-50 MG TAB PO SCH (09:26)
[2019-11-25] MEDS: Cyclobenzaprine 10 MG TAB PO SCH (09:27)
[2019-11-25] MEDS: Gabapentin 300 MG CAP PO SCH ×2 (09:27→14:39)
[2019-11-25] MEDS ORDERED: OXcarbazepine 300 MG TAB PO SCH ×2 (10:15→21:00)
[2019-11-25] MEDS: Pyridostigmine Bromide IR 60 MG TAB PO SCH ×2 (10:21→16:03)
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
[2019-11-25] MEDS ORDERED: Mometasone/Formoterol 120 PUFF INHALER INH SCH (18:30)
[2019-11-25 19:46] VITALS: BP 112/59; TEMP 97.9
[2019-11-26] MEDS ORDERED: Levothyroxine Sodium 112 MCG TAB PO SCH (06:00)
== END 2019-11-25 19:45 | disposition home or self-care (01) | DRG 200 ==
LOC: ERS 11:49 → SJJU 16:20
PROVIDERS: ADMIT Surgery; ATTEND Surgery
DX: S27.0XXA Traumatic pneumothorax, initial encounter (principal); S27.321A Contusion of lung, unilateral, initial encounter; S22.41XA Multiple fractures of ribs, right side, initial encounter for closed fracture; G70.00 Myasthenia gravis without (acute) exacerbation; G40.909 Epilepsy, unspecified, not intractable, without status epilepticus; J44.9 Chronic obstructive pulmonary disease, unspecified; E03.9 Hypothyroidism, unspecified; G25.81 Restless legs syndrome; T79.7XXA Traumatic subcutaneous emphysema, initial encounter; V03.99XA Pedestrian with other conveyance injured in collision with car, pick-up truck or van, unspecified whether traffic or nontraffic accident, initial encounter; Z86.718 Personal history of other venous thrombosis and embolism; Z79.899 Other long term (current) drug therapy; Z88.0 Allergy status to penicillin; Z88.8 Allergy status to other drugs, medicaments and biological substances; Z91.041 Radiographic dye allergy status; Z79.890 Hormone replacement therapy
CPT/HCPCS: 36415; 70450; 71045; 71260; 72125; 72170; 74177; 80048; 80053; 80306; 80307; 82550; 83605; 83690; 83735; 84100; 85025; 85610; 85730; 86850; 86900; 86901; 90471; 90715; 93005; 96374; 96375; G0390; J1200; J1650; J2270; J2405; J2930; J3010; J7620; Q9967; S0028

== ENCOUNTER 2019-12-03 19:58 | Emergency (ER) | payer MEDICARE ==
[2019-12-03 22:25] LABS: Bilirubin Negative (Negative); Blood, Urine Negative (Negative); Clarity Clear (Clear); Glucose, Urine (Dipstick) Normal (Negative); Leukocyte Negative Leu/uL (Negative); Nitrite Negative (Negative); Protein, Urine (Dipstick) Negative (Neg-Trace); Urobilinogen 3 mg/dL (Less than 2)
--- NOTE | 2019-12-03 23:50 | NM ---
Radionucleotide ventilation perfusion lung scan HISTORY: Dyspnea. FINDINGS: Ventilation images show good uptake throughout each lung. No focal areas of air trapping. Perfusion images show poor perfusion gradient. Defect at the right base correlates with pleural fluid on chest radiograph. Heterogeneous uptake throughout each lung. No segmental or subsegmental perfusion mismatches. IMPRESSION: Low probability for clinically significant pulmonary embolus.
== END 2019-12-04 02:15 | disposition home or self-care (01) ==
LOC: ERS 19:58
DX: R79.1 Abnormal coagulation profile (principal); M79.89 Other specified soft tissue disorders; M54.9 Dorsalgia, unspecified; G40.909 Epilepsy, unspecified, not intractable, without status epilepticus; F41.9 Anxiety disorder, unspecified; F32.9 Major depressive disorder, single episode, unspecified; Z79.899 Other long term (current) drug therapy
CPT/HCPCS: 71046; 78582; 81003; 84484; 85025; 85379; 93005; 93971; 99284; A9540; A9558; 36415

== ENCOUNTER 2020-01-07 15:46 | Outpatient (CLI) | payer MEDICARE ==
--- NOTE | 2020-01-07 15:59 | RAD ---
EXAM: Two views chest PROVIDED CLINICAL HISTORY: Dyspnea COMPARISON: 12/03/2019 FINDINGS: Cardiac silhouette and pulmonary vasculature are within normal limits. Mild elevation right hemidiap hragm is present. The right pleural effusion has significantly improved. There is minimal blunting of the posterior right costophrenic angle which likely presents residual tiny right pleural effusion versus pleural thickening. Minimal atelectasis is present at the right lung base. Left lung is clear. IMPRESSION: Tiny right pleural effusion, but the pleural effusion has improved compared to prior study. Minimal a telectasis is present at the right lung base..
== END 2020-01-07 15:47 | disposition home or self-care (01) ==
LOC: RAD 15:46
PROVIDERS: ATTEND Internal Medicine Pulmonary Disease
DX: R06.00 Dyspnea, unspecified (principal); J90 Pleural effusion, not elsewhere classified; J98.11 Atelectasis
CPT/HCPCS: 71046

== ENCOUNTER 2020-05-16 17:52 | Emergency (ER) | payer MEDICARE, OTHER ==
[2020-05-16] MEDS ORDERED: Adacel (T-DAP) 0.5 ML SYRINGE ONE (19:47)
[2020-05-18 12:12] LABS: SARS-CoV-2 MS2 Positive; SARS-CoV-2 N Gene Negative; SARS-CoV-2 S Gene Negative; SARS-CoV-2 orf1ab Negative
== END 2020-05-16 20:30 | disposition home or self-care (01) ==
LOC: ERS 17:52
DX: S81.812A Laceration without foreign body, left lower leg, initial encounter (principal); R05 Cough; R06.02 Shortness of breath; Z20.828 Contact with and (suspected) exposure to other viral communicable diseases; G40.909 Epilepsy, unspecified, not intractable, without status epilepticus; F41.9 Anxiety disorder, unspecified; F32.9 Major depressive disorder, single episode, unspecified; Z79.899 Other long term (current) drug therapy; Z23 Encounter for immunization; W26.8XXA Contact with other sharp object(s), not elsewhere classified, initial encounter
CPT/HCPCS: 12001; 90471; 90715; 99283; U0003; 87635

== ENCOUNTER 2023-09-09 20:00 | Emergency (ER) | payer MEDICARE ==
[2023-09-09 21:59] LABS: #Basophils 0.1 thou/uL (0.0-0.2); #Eosinphils 0.2 thou/uL (0.0-0.7); #Monocytes 0.5 thou/uL (0.11-0.59); #Neutrophils 3.2 thou/uL (1.40-6.50); %Basophils 1.1 % (0.0-1.0); %Eosinophils 3.1 % (0.0-10.0); %Monocytes 8.1 % (0.0-10.0); %Neutrophils 57.2 % (42.0-75.0); Hematocrit 47.3 % (36.0-47.0); Hemoglobin 14.8 g/dL (12.0-16.0); Mean Corpuscular HGB CONC 31.3 g/dL (32.0-36.0); Mean Corpuscular Hemoglobin 30.1 pg (27.0-31.0); Mean Corpuscular Volume 96.3 fl (78.0-98.0); Mean Platelet Volume 11.3 fL (7.4-10.4); Platelet Count 164 10x3/uL (130-400); RBC Distribution Width 13.2 % (11.5-14.5); Red Blood Cell (RBC) Count 4.91 mill/uL (4.20-5.40); White Blood Cell (WBC) Count 5.6 10x3/uL (4.8-10.8)
[2023-09-09 22:23] LABS: ALT (SGPT) 20 U/L (8-55); AST (SGOT) 21 U/L (5-34); Alkaline Phosphatase 110 U/L (40-110); Anion Gap 15 mmol/L (10-20); BUN (Urea Nitrogen) 9 mg/dL (9.8-20.1); Bilirubin, Total 0.4 mg/dL (0.2-1.2); Calc. Creatinine Clearance 0 mL/min (70-130); Calcium 8.8 mg/dL (7.8-10.44); Carbon Dioxide 22 mmol/L (22-29); Chloride 106 mmol/L (98-107); Estimated GFR 95; Globulin 3.1 g/dL (2.4-3.5); Glucose 79 mg/dL (70-105); Potassium 3.7 mmol/L (3.5-5.1); Protein, Total 7.1 g/dL (6.0-8.3); Sodium 139 mmol/L (136-145)
[2023-09-09 22:54] LABS: Bacteria/HPF None Seen HPF (None Seen); Bilirubin Negative (Negative); Blood, Urine Negative (Negative); CAUTI Indications for Culture Pelvic or flank pain; Clarity Clear (Clear); Glucose, Urine (Dipstick) Normal (Negative); Ketone, Urine Negative (Negative); Leukocyte Negative Leu/uL (Negative); Nitrite Negative (Negative); Protein, Urine (Dipstick) Negative (Neg-Trace); RBC/HPF 0-3 HPF (0-3); Squamous Epithelial 0-3 HPF (0-3); WBC/HPF 0-3 HPF (0-3)
[2023-09-09 22:55] LABS: Urine Culture Reflex No No
== END 2023-09-09 23:38 | disposition left against medical advice (07) ==
LOC: ERS 20:00
DX: Z53.21 Procedure and treatment not carried out due to patient leaving prior to being seen by health care provider (principal)
CPT/HCPCS: 36415; 80053; 81001; 85025

== ENCOUNTER 2024-12-12 06:46 | Inpatient (IN) | payer MEDICARE ==
[2024-12-12] MEDS ORDERED: Ondansetron PF 4 MG/2 ML Vial ONE ×2 (07:34→09:32)
[2024-12-12 08:13] LABS: #Basophils 0.03 10x3/uL (0.0-0.2); %Basophils 0.4 % (0.0-1.0); %Eosinophils 0.7 % (0.0-10.0); %Lymphocytes 24.8 % (21.0-51.0); %Monocytes 4.4 % (0.0-10.0); %Neutrophils 69.3 % (42.0-75.0); Hematocrit 47.1 % (36.0-47.0); Hemoglobin 15.4 g/dL (12.0-16.0); Mean Corpuscular HGB CONC 32.7 g/dL (32.0-36.0); Mean Corpuscular Hemoglobin 29.3 pg (27.0-31.0); Mean Corpuscular Volume 89.5 fL (78.0-98.0); Mean Platelet Volume 9.5 fL (7.4-10.4); Platelet Count 296 10x3/uL (130-400); RBC Distribution Width 13.1 % (11.5-14.5); Red Blood Cell (RBC) Count 5.26 mill/uL (4.20-5.40)
[2024-12-12 08:37] LABS: ALT (SGPT) 13 U/L (Less than 34); AST (SGOT) 20 U/L (11-34); Alkaline Phosphatase 130 U/L (40-110); Anion Gap 13 mmol/L (10-20); BUN (Urea Nitrogen) 15 mg/dL (9.8-20.1); Bilirubin, Total 0.5 mg/dL (0.3-1.2); Calc. Creatinine Clearance 0 mL/min (70-130); Calcium 9.1 mg/dL (7.8-10.44); Carbon Dioxide 22 mmol/L (22-29); Chloride 111 mmol/L (98-107); Estimated GFR 103; Globulin 3.7 g/dL (2.4-3.5); Glucose 103 mg/dL (70-105); Lipase 22 U/L (8-78); Potassium 3.8 mmol/L (3.5-5.1); Protein, Total 7.4 g/dL (6.0-8.3); Sodium 142 mmol/L (136-145)
[2024-12-12 09:07] LABS: Albumin 3.7 g/dL (3.1-4.5)
[2024-12-12 09:22] LABS: Bacteria/HPF None Seen HPF (None Seen); Bilirubin Negative (Negative); Blood, Urine Negative (Negative); CAUTI Indications for Culture Pelvic or flank pain; Clarity Clear (Clear); Glucose, Urine (Dipstick) Normal (Negative); Ketone, Urine 10 mg/dL (Negative); Leukocyte 75 Leu/uL (Negative); Nitrite Negative (Negative); Protein, Urine (Dipstick) Negative (Neg-Trace); RBC/HPF 0-3 HPF (0-3); Specific Gravity, Urine 1.019 (1.002-1.036); Squamous Epithelial 0-3 HPF (0-3); Urobilinogen Normal mg/dL (Less than 2)
[2024-12-12 09:23] LABS: Urine Culture Reflex No No
[2024-12-12] MEDS ORDERED: Haloperidol Lactate 5 MG/ML VIAL ONE (10:09)
[2024-12-12] MEDS ORDERED: diphenhydrAMINE 50 MG/ML VIAL ONE (10:09)
[2024-12-12 12:33] LABS: Amphetamine Detected (NotDetected); Barbiturates Screen Not Detected (NotDetected); Benzodiazepine Screen Not Detected (NotDetected); Cocaine Metabolite Screen Not Detected (NotDetected); Methadone Not Detected (NotDetected); Methamphetamine Detected (NotDetected); Opiate Screen Not Detected (NotDetected); Oxycodone Screen Not Detected (NotDetected); Phencyclidine (PCP) Not Detected (NotDetected); THC/Cannabinoid Screen Not Detected (NotDetected); Tricyclic Screen Not Detected (NotDetected)
[2024-12-12] MEDS ORDERED: Acetaminophen 325 MG TAB PO PRN (12:39)
[2024-12-12] MEDS ORDERED: Promethazine HCl 25 MG in Sodium Chloride 0.9% 50 ML IVPB PRN (12:42)
[2024-12-12] MEDS ORDERED: Promethazine HCl 25 MG/ML VIAL ONE (13:15)
[2024-12-12] MEDS: Sodium Chloride 0.9% 1,000 ML IV SCH (14:18)
[2024-12-12 16:10] VITALS: BMI 24.2
[2024-12-13 06:32] LABS: #Basophils 0.03 10x3/uL (0.0-0.2); %Basophils 0.4 % (0.0-1.0); %Eosinophils 0.9 % (0.0-10.0); %Lymphocytes 24.9 % (21.0-51.0); %Monocytes 4.8 % (0.0-10.0); %Neutrophils 68.7 % (42.0-75.0); Hematocrit 43.6 % (36.0-47.0); Hemoglobin 13.8 g/dL (12.0-16.0); Mean Corpuscular HGB CONC 31.7 g/dL (32.0-36.0); Mean Corpuscular Hemoglobin 29.4 pg (27.0-31.0); Mean Corpuscular Volume 92.8 fL (78.0-98.0); Mean Platelet Volume 9.7 fL (7.4-10.4); Platelet Count 229 10x3/uL (130-400); RBC Distribution Width 13.1 % (11.5-14.5)
[2024-12-13 07:05] LABS: Anion Gap 9 mmol/L (10-20); BUN (Urea Nitrogen) 17 mg/dL (9.8-20.1); Calc. Creatinine Clearance 100 mL/min (70-130); Carbon Dioxide 25 mmol/L (22-29); Chloride 109 mmol/L (98-107); Estimated GFR 101; Glucose 173 mg/dL (70-105); Potassium 3.1 mmol/L (3.5-5.1); Sodium 140 mmol/L (136-145)
[2024-12-13] MEDS ORDERED: Gabapentin 300 MG CAP PO PRN (07:47)
[2024-12-13] MEDS ORDERED: Ondansetron PF 4 MG/2 ML Vial IVP PRN (07:49)
[2024-12-13] MEDS: Potassium Chloride 20 MEQ TAB PO SCH (10:07)
[2024-12-13] MEDS: Pramipexole Di-HCl 0.25 MG TAB PO SCH (20:25)
[2024-12-13] MEDS: OXcarbazepine 300 MG TAB PO SCH (20:25)
[2024-12-14 01:53] LABS: Campy jejuni + coli by PCR Negative (Negative); STEC Shiga Toxin 1+2 Negative (Negative); Salmonella spp. by PCR Negative (Negative); Shigella spp + EIEC by PCR Negative (Negative)
[2024-12-14] MEDS: Levothyroxine Sodium 50 MCG TAB PO SCH (05:23)
[2024-12-14 08:26] LABS: #Basophils 0.03 10x3/uL (0.0-0.2); %Basophils 0.6 % (0.0-1.0); %Eosinophils 2.8 % (0.0-10.0); %Lymphocytes 31.4 % (21.0-51.0); %Monocytes 6.4 % (0.0-10.0); %Neutrophils 58.2 % (42.0-75.0); Hematocrit 41.3 % (36.0-47.0); Hemoglobin 13.6 g/dL (12.0-16.0); Mean Corpuscular HGB CONC 32.9 g/dL (32.0-36.0); Mean Corpuscular Hemoglobin 30.2 pg (27.0-31.0); Mean Corpuscular Volume 91.8 fL (78.0-98.0); Mean Platelet Volume 9.4 fL (7.4-10.4); Platelet Count 208 10x3/uL (130-400); RBC Distribution Width 13.2 % (11.5-14.5)
[2024-12-14 08:47] LABS: Anion Gap 8 mmol/L (10-20); BUN (Urea Nitrogen) 7 mg/dL (9.8-20.1); Calc. Creatinine Clearance 120 mL/min (70-130); Calcium 7.9 mg/dL (7.8-10.44); Carbon Dioxide 23 mmol/L (22-29); Chloride 113 mmol/L (98-107); Estimated GFR 106; Glucose 96 mg/dL (70-105); Magnesium 1.8 mg/dL (1.6-2.6); Sodium 140 mmol/L (136-145)
[2024-12-14] MEDS ORDERED: FLU (Fluarix Triv) TS24-25(6MOS UP)/PF 45 MCG/0.5 ML Syringe IM ONE (09:00)
[2024-12-14 11:39] VITALS: BMI 24.2
[2024-12-14 11:55] VITALS: BP 116/77; TEMP 98.3
== END 2024-12-14 15:47 | disposition home or self-care (01) | DRG 392 ==
LOC: ERS 06:46 → SURG A 13:49 → OBSVTOIN 12-14 08:26
PROVIDERS: ADMIT Internal Medicine; ATTEND Internal Medicine
DX: R11.2 Nausea with vomiting, unspecified (principal); E03.9 Hypothyroidism, unspecified; J45.909 Unspecified asthma, uncomplicated; G40.909 Epilepsy, unspecified, not intractable, without status epilepticus; G70.00 Myasthenia gravis without (acute) exacerbation; F39 Unspecified mood [affective] disorder; F15.10 Other stimulant abuse, uncomplicated; Z86.718 Personal history of other venous thrombosis and embolism; Z88.1 Allergy status to other antibiotic agents; Z88.8 Allergy status to other drugs, medicaments and biological substances; Z90.710 Acquired absence of both cervix and uterus
CPT/HCPCS: 36415; 74176; 80048; 80053; 80306; 81001; 83690; 83735; 84436; 84443; 84480; 84484; 85025; 87324; 87428; 87449; 87505; 93005; 96361; 96374; 96375; 96376; G0378; J1200; J1630; J2405; J2550; J7030